=== PATIENT | female | born 1990 | race Caucasian/White ===

== ENCOUNTER 2017-06-10 13:28 | Outpatient (RCR) | payer OTHER ==
[~2017-06-10 13:28] MED LIST: MOTRIN 600600 MG/TAB PO; PERCOCET 325 MG1 TA2 PO; Procardia XL PO; ZOVIRAX400 MG
== END 2017-06-11 11:03 | disposition home or self-care (01) ==
LOC: WSOH 13:28
DX: S60.221A Contusion of right hand, initial encounter (principal); W20.8XXA Other cause of strike by thrown, projected or falling object, initial encounter; Y99.0 Civilian activity done for income or pay

== ENCOUNTER 2020-03-17 15:07 | Outpatient (RCR) | payer OTHER | END 2020-06-07 | disposition home or self-care (01) | LOC: WSOH | DX: S90.31XA Contusion of right foot, initial encounter (principal); Z98.890 Other specified postprocedural states; Z87.891 Personal history of nicotine dependence; Y99.0 Civilian activity done for income or pay ==